=== PATIENT | female | born 2000 | race African-American/Black ===

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

== ENCOUNTER 2019-05-28 01:49 | Emergency (ER) | payer BC ==
[2019-05-28] MEDS ORDERED: Ketorolac INJ* 15 MG/ML 1 ML VIAL IV ONE (02:08)
[2019-05-28] MEDS ORDERED: NS 0.9% 1000 ML** 1,000 ML IV ONE (02:08)
[2019-05-28] MEDS ORDERED: Ondansetron INJ* 2 MG/ML VIAL IV ONE (02:08)
--- NOTE | 2019-05-28 02:16 | ED ---
Abdominal Pain/Female - HPI Summary HPI Summary: 19 year old F presenting to [facility] complains of worsening right sided abdominal pain and right flank pain rated 8/10 in severity since waking up from her sleep 2 hours ago. States she was seen at [facility] yesterday 05/27/19 where she was given IV normal saline fluids and IV antibiotics and diagnosed with kidney infection. States that she was d/c home with prescription for Cipro. States she was not given any pain medications. States she went to bed yesterday 05/27 and woke up today 05/28 with worsening pain. States that she had abdominal pain wrapping around her lower abdomen yesterday, is now having right sided abdominal pain and right flank pain. Symptoms aggravated by nothing. Symptoms alleviated by nothing. - History of Current Complaint Chief Complaint: EDFlankPain Stated Complaint: SEEN BY DOCTOR TODAY KIDNEY INFECTION PER PT Time Seen by Provider: 05/28/19 02:09 Hx Obtained From: Patient Onset/Duration: Lasting Hours - 2, Still Present Timing: Constant Severity Currently: Severe Pain Intensity: 8 Pain Scale Used: 0-10 Numeric Aggravating Factor(s): Nothing Alleviating Factor(s): Nothing Allergies/Adverse Reactions: Allergies Allergy/AdvReac Type Severity Reaction Status Date / Time No Known Allergies Allergy Verified 06/13/17 21:19 PMH/Surg Hx/FS Hx/Imm Hx Neurological History: Reports: Other Neuro Impairments/Disorders - Tourette's syndrome, nonepileptic seizures Psychiatric History: Reports: Other Psychiatric Issues/Disorders - OCD - Surgical History Surgery Procedure, Year, and Place: no prior surgery Infectious Disease History: No Infectious Disease History: Denies: Traveled Outside the [place] in Last 30 Days - Family History Known Family History: Positive: Other - Breast cancer - Social History Alcohol Use: None Substance Use Type: Reports: None Hx Tobacco Use: No Smoking Status (MU): Never Smoked Tobacco Review of Systems - ROS Summary Review of Systems Summary: Home Medications Medication Instructions Recorded Confirmed Type Tetrabenazine 12.5 mg PO BID #6 tab 06/13/17 Rx Positive: Abdominal Pain Positive: flank pain - right All Other Systems Reviewed And Are Negative: Yes Physical Exam - Summary Physical Exam Summary: General: Well-developed, Well-nourished FEMALE. No acute distress. HEENT: Normocephalic, Atraumatic. Eyes: Conjuctiva normal, PERRL. Ears: TMs within normal limits. Nares: (-) discharge, (-) erythema. Oropharynx: Clear, mucous membranes moist, (-) exudates. Neck: Soft, FROM, (-) lymphadenopathy, (-) thyromegaly, (-) JVD. Cardiovascular: Normal sinus rhythm, (-) murmur. Lungs: Clear to auscultation bilaterally (-) wheezes, (-) rales, (-) rhonchi. Abdomen: Right lateral upper abdominal pain with tenderness to palpation. Soft, non-distended, (-) organomegaly, normal bowel sounds. Back: (-) CVA tenderness Extremities: No edema. Skin: Warm, dry, (-) rash. Neuro: Alert and oriented x3, no focal deficits. Psychiatric: Mood normal, affect normal. Triage Information Reviewed: Yes Vital Signs On Initial Exam: Initial Vitals Temp Pulse Resp BP Pulse Ox 98.8 F 78 16 130/80 98 05/28/19 01:58 05/28/19 01:58 05/28/19 01:58 05/28/19 01:58 05/28/19 01:58 Vital Signs Reviewed: Yes Procedures - Sedation Patient Received Moderate/Deep Sedation with Procedure: No Diagnostics - Vital Signs Vital Signs Temp Pulse Resp BP Pulse Ox 05/28/19 01:58 98.8 F 78 16 130/80 98 - Laboratory Result Diagrams: 05/28/19 02:26 05/28/19 02:26 Lab Statement: Any lab studies that have been ordered have been reviewed, and results considered in the medical decision making process. Abdominal Pain Fem Course/Dx - Course Course Of Treatment: 19-year-old female presents with diagnosis of kidney infection today. Patient states she was given IV fluids and IV antibiotics and discharged home. Awoke with increased flank pain. Patient denies any current fevers. No nausea vomiting. Patient given IV fluids and Toradol here. Significant improvement in her symptoms and patient discharged to home. Take Cipro as advised. Plenty of fluids and rest. Tylenol or ibuprofen as needed. Follow-up with PCP. Follow-up sooner for any worsening symptoms. - Diagnoses Provider Diagnoses: UTI (urinary tract infection) Discharge ED - Sign-Out/Discharge Documenting (check all that apply): Patient Departure - Discharge - Discharge Plan Condition: Stable Disposition: HOME Patient Education Materials: Urinary Tract Infection in Women (ED) Referrals: [facility] [Outside] - 3 Days Additional Instructions: Continue taking the antibiotics you were prescribed. Recommend ibuprofen or Tylenol for the pain. Drink plenty fluids. Get plenty of rest. Please follow up with your primary care physician within 3 days. Please return to Emergency Department for any new or worsening symptoms. - Billing Disposition and Condition Condition: STABLE Disposition: Home - Attestation Statements Document Initiated by Scribe: Yes Documenting Scribe: Kae Morrow Provider For Whom Yoselin is Documenting (Include Credential): Dottie Junior MD Scribe Attestation: I, Kae Morrow, scribed for Dottie Junior MD on 05/28/19 at 0454. Scribe Documentation Reviewed: Yes Provider Attestation: The documentation as recorded by the scribeKae accurately reflects the service I personally performed and the decisions made by me, Dottie Junior MD Status of Scribe Document: Viewed
[2019-05-28 02:33] LABS: ABS Basophils 0.1 10^3/ul (0-0.2); ABS Eosinophils 0.1 10^3/ul (0-0.6); ABS Lymphocytes 1.8 10^3/ul (1.0-4.8); ABS Monocytes 0.6 10^3/ul (0-0.8); ABS Neutrophils 7.4 10^3/ul (1.5-7.7); Eosinophil % 0.7 %; Hematocrit 36 % (35-47); Hemoglobin 12.3 g/dL (12.0-16.0); Lymphocyte % 17.9 %; Mean Corpuscular HGB Conc 34 g/dL (31-36); Mean Corpuscular Hemoglobin 30 pg (27-31); Mean Corpuscular Volume 88 fL (80-97); Mean Platelet Volume 8.5 fL (7.4-10.4); Platelet Count 248 10^3/uL (150-450); Red Blood Count 4.14 10^6 /uL (3.70-4.87); Red Cell Distribution Width 14 % (10-15); White Blood Count 9.8 10^3/uL (3.5-10.8)
[2019-05-28 02:39] LABS: INR 1.1 (0.82-1.09)
[2019-05-28 02:50] LABS: ALT 9 U/L (7-52); AST 13 U/L (13-39); Albumin 4.2 g/dL (3.2-5.2); Albumin/Globulin Ratio 1.5 (1-3); Alkaline Phosphatase 88 U/L (34-104); Anion Gap 9 mmol/L (2-11); BUN/Creatinine Ratio 9.3 (8-20); Blood Urea Nitrogen 9 mg/dL (6-24); C Reactive Protein 17.49 mg/L (<8.01); CO2 Carbon Dioxide 24 mmol/L (22-32); Calcium 9.4 mg/dL (8.6-10.3); Chloride 105 mmol/L (101-111); EGFR African American 87.7 (>60); EGFR Non-African American 72.5 (>60); Globulin 2.8 g/dL (2-4); Glucose 108 mg/dL (70-100); Potassium 3.4 mmol/L (3.5-5.0); Sodium 138 mmol/L (135-145)
[2019-05-28 02:53] LABS: Urine Appearance Clear; Urine Bacteria Absent (Absent); Urine Bilirubin Negative (Negative); Urine Blood 2+ (Negative); Urine Color Yellow; Urine Glucose Negative (Negative); Urine Ketones Negative (Negative); Urine Nitrite Negative (Negative); Urine Protein Negative (Negative); Urine Red Blood Cell 3+(>10/hpf) (Absent); Urine Specific Gravity 1.011 (1.010-1.030); Urine Squamous Epithelial Cell Present (Absent); Urine Urobilinogen Negative (Negative); Urine White Blood Cell 3+(>20/hpf) (Absent)
[2019-05-28 02:57] LABS: HCG Pregnancy < 0.60 mIU/mL
[2019-05-28 04:10] VITALS: BP 111/66
== END 2019-05-28 04:09 | disposition home or self-care (01) ==
LOC: ED 01:49
DX: N39.0 Urinary tract infection, site not specified (principal); F95.2 Tourette's disorder; F42.9 Obsessive-compulsive disorder, unspecified; Z79.899 Other long term (current) drug therapy
CPT/HCPCS: 36415; 80053; 81003; 81015; 83605; 84702; 85025; 85610; 86140; 87040; 87086; 96361; 96374; 96375; 99283; J1885; J2405